=== PATIENT | male | born 1970 | race Caucasian/White ===

== ENCOUNTER 2023-11-24 11:28 | Emergency (ER) | payer OTHER ==
[~2023-11-24] VITALS: Ht 190.5 cm; Wt 86.3 kg
[2023-11-24] VITALS (8 sets, daily range): BP systolic 129–166; BP diastolic 85–94
[~2023-11-24 11:28] MED LIST: FLEXERIL5 M1 PO; NAPROXEN500 MG PO
[2023-11-24 12:45] LABS: BASO% 0.2 % (0-3); EOS% 0.8 % (0-8); HEMATOCRIT 47.6 % (39.0-50.0); HEMOGLOBIN 16.2 g/dl (14.0-18.0); LYMPH% 23.1 % (15-41); MEAN CELL VOLUME 86.7 fL CALC (80.0-100.0); MEAN CORPUSCULAR HGB 29.5 pG CALC (26.0-32.0); MONO% 6.7 % (2-13); NEUT# 6.4 thou/uL (1.82-7.42); NEUT% 69.2 % (42-76); RED BLOOD COUNT 5.49 mill/uL (4.70-6.10); RED CELL DISTRI WIDTH 14.6 % (11.5-15.5)
[2023-11-24 13:06] LABS: ALBUMIN 4.5 g/dL (3.2-5.0); CREATININE 0.7 mg/dL (0.7-1.3); TOTAL PROTEIN 7.4 g/dL (6.3-8.2)
[2023-11-24 13:08] LABS: BILIRUBIN, TOTAL 0.5 mg/dL (0.2-1.3); POTASSIUM 3.4 mmol/l (3.5-5.1)
[2023-11-24] MEDS ORDERED: POTASSIUM CHLORIDE 20 MEQ/TAB PO ONE (13:30)
== END 2023-11-24 14:05 | disposition home or self-care (01) | DRG 641 ==
LOC: ED 11:28
PROVIDERS: Nurse Practitioner Family
DX: E86.0 Dehydration (principal); R11.2 Nausea with vomiting, unspecified; F17.210 Nicotine dependence, cigarettes, uncomplicated

== ENCOUNTER 2024-04-28 08:49 | Emergency (ER) | payer OTHER ==
[~2024-04-28] VITALS: Ht 190.5 cm; Wt 86.1 kg
[2024-04-28 08:53] VITALS: BP 114/93
[2024-04-28 09:00] VITALS: BP 122/91
[2024-04-28 09:15] VITALS: BP 140/87
[2024-04-28 09:45] VITALS: BP 140/87
== END 2024-04-28 09:45 | disposition home or self-care (01) | DRG 93 ==
LOC: ED 08:49
DX: R20.2 Paresthesia of skin (principal)

== ENCOUNTER 2024-05-30 11:09 | Emergency (ER) | payer OTHER ==
[2024-05-30] VITALS (7 sets, daily range): BP systolic 140–185; BP diastolic 84–105
[~2024-05-30] VITALS: Ht 190.5 cm; Wt 90.9 kg
[2024-05-30] MEDS ORDERED: ORPHENADRINE CITRATE 30 MG/ML AMP IM ONE ×2 (12:35)
[2024-05-30] MEDS ORDERED: KETOROLAC TROMETHAMINE 30 MG/ML SDV IM ONE (12:45)
[2024-05-30] MEDS ORDERED: PREDNISONE10 MG PO ×2 (14:11→14:12)
[2024-05-30] MEDS ORDERED: METHOCARBAMOL500 MG PO (14:11)
[2024-05-30] MEDS ORDERED: NAPROXEN500 MG PO (14:11)
== END 2024-05-30 14:39 | disposition home or self-care (01) | DRG 74 ==
LOC: ED 11:09
DX: M54.12 Radiculopathy, cervical region (principal); M25.78 Osteophyte, vertebrae; M48.02 Spinal stenosis, cervical region; Z72.0 Tobacco use
CPT/HCPCS: J1100; J2360